=== PATIENT | female | born 1960 | race Caucasian/White ===

== ENCOUNTER 2017-02-19 15:51 | Inpatient (IN) | payer OTHER ==
[~2017-02-19] VITALS: Ht 165.1 cm; Wt 102.9 kg
[2017-02-19] MEDS ORDERED: SODIUM CHLORIDE FLUSH 10ML SYR IVF ONE (16:00)
[2017-02-19 16:48] LABS: ASPARTATE AMINO TRANSFERASE 114 U/L (15-37); BLOOD UREA NITROGEN 11 mg/dL (7-18)
[2017-02-19 16:55] LABS: HEMATOCRIT 39.3 % (34.6-47.8); HEMOGLOBIN 13.4 g/dL (11.7-16.4); WHITE BLOOD COUNT 16.5 x10^3/uL (3.4-10)
[2017-02-19 16:57] LABS: DIFF TOTAL CELLS COUNTED 100 CELL DIFF
[2017-02-19 17:28] LABS: ANISOCYTOSIS 1+; POLYCHROMASIA 1+; TARGET CELLS 1+; VERIFY COUNTS? YES
[2017-02-19] MEDS ORDERED: POTASSIUM CHLORIDE 20 MEQ TAB.ER.PRT ONE (17:28)
[2017-02-19] MEDS ORDERED: POTASSIUM CHLORIDE 20 MEQ PACKET PO ONE (17:30)
[2017-02-19] MEDS ORDERED: POTASSIUM CHLORIDE 40 MEQ in SODIUM CHLORIDE 0.9% 500 ML IV ONE (17:30)
[2017-02-19] MEDS ORDERED: OMNIPAQUE 350 MG/ML, 100ML BOTTLE ONE (18:21)
[2017-02-19] MEDS: POLYETHYLENE GLYCOL 17 GM PACKET PO SCH (21:00)
[2017-02-19 21:55] LABS: CARCINOEMBRYONIC ANTIGEN 80.32 ng/mL (0.0-3.00)
[2017-02-19] MEDS ORDERED: PHYTONADIONE 5 MG TABLET PO ONE (22:00)
[2017-02-19] MEDS ORDERED: morphine SULFATE 10 MG/ML, 1ML IVPush PRN (22:00)
[2017-02-19] MEDS ORDERED: LABETALOL 5MG/ML, 20ML IVPush PRN (22:00)
[2017-02-19] MEDS ORDERED: TEMAZEPAM 15 MG CAPSULE PO PRN (22:00)
[2017-02-19] MEDS ORDERED: ONDANSETRON ODT 4 MG PO PRN (22:00)
[2017-02-19] MEDS ORDERED: ONDANSETRON 2MG/ML, 2ML IVPush PRN (22:00)
[2017-02-19] MEDS ORDERED: FAMOTIDINE 20 MG/2 ML ONE (22:07)
[2017-02-19] MEDS: CEFOTETAN PMX 2GM/50ML 50 ML IV SCH (22:40)
[2017-02-19] MEDS: FAMOTIDINE 20 MG/2 ML IVPush SCH (22:41)
[2017-02-19] MEDS: POTASSIUM CHLORIDE 40 MEQ in D5%-0.9% NACL 1,000 ML IV SCH (23:05)
[2017-02-20 00:28] VITALS: BP 119/78
[2017-02-20 05:51] LABS: BLOOD UREA NITROGEN 7 mg/dL (7-18)
[2017-02-20 05:55] LABS: ASPARTATE AMINO TRANSFERASE 92 U/L (15-37)
[2017-02-20 06:06] LABS: HEMATOCRIT 32.4 % (34.6-47.8); HEMOGLOBIN 11.2 g/dL (11.7-16.4); WHITE BLOOD COUNT 12.6 x10^3/uL (3.4-10)
[2017-02-20 06:07] LABS: DIFF TOTAL CELLS COUNTED 100 CELL DIFF
[2017-02-20 06:08] LABS: VERIFY COUNTS? YES
[2017-02-20 06:10] LABS: ANISOCYTOSIS 1+; POLYCHROMASIA 1+
[2017-02-20] MEDS ORDERED: PHARMACY INSTRUCTION MC PRN (06:30)
[2017-02-20] MEDS ORDERED: POTASSIUM CHLORIDE 60 MEQ in SODIUM CHLORIDE 0.9% 1,000 ML IV ONE (06:30)
[2017-02-20] MEDS: POTASSIUM CHLORIDE 40 MEQ in D5%-0.9% NACL 1,000 ML IV SCH ×2 (07:54→19:57)
[2017-02-20] MEDS: POLYETHYLENE GLYCOL 17 GM PACKET PO SCH (07:55)
[2017-02-20] MEDS: FAMOTIDINE 20 MG/2 ML IVPush SCH ×2 (07:59→19:58)
[2017-02-20 08:18] VITALS: BP 112/69
[2017-02-20] MEDS: CEFOTETAN PMX 2GM/50ML 50 ML IV SCH (10:21)
[2017-02-20] MEDS ORDERED: FENTANYL PF 100 MCG/2ML ONE (13:43)
[2017-02-20] MEDS ORDERED: morphine SULFATE 10 MG/ML, 1ML IV PRN (14:00)
[2017-02-20] MEDS ORDERED: FENTANYL PF 100 MCG/2ML IV PRN (14:00)
[2017-02-20] MEDS ORDERED: HYDROmorphone 1 MG/ML, 1ML IV PRN (14:00)
[2017-02-20] MEDS ORDERED: OXYcodone 5 MG/5 ML ORAL.SOL UDC PO PRN (14:00)
[2017-02-20] MEDS ORDERED: HYDROcodone/APAP 7.5-325MG/15ML UDC PO PRN (14:00)
[2017-02-20] MEDS ORDERED: SUCCINYLCHOLINE 20 MG/ML, 10ML ONE (14:02)
[2017-02-20] MEDS ORDERED: PROPOFOL 10 MG/ML, 20ML ONE (14:02)
[2017-02-20] MEDS ORDERED: OMNIPAQUE 350 MG/ML, 50 ML BOTTLE ONE (14:57)
[2017-02-20 16:33] VITALS: BP 120/58
[2017-02-20] MEDS ORDERED: POTASSIUM CHLORIDE 20 MEQ TAB.ER.PRT PO ONE (18:30)
[2017-02-20 19:49] VITALS: BP 106/66
[2017-02-20] MEDS: PIPERACILLIN/TAZO/PMX 3.375GM 50 ML IV SCH (19:57)
[2017-02-20] MEDS ORDERED: POTASSIUM CHLORIDE 40 MEQ in SODIUM CHLORIDE 0.9% 500 ML IV ONE (22:00)
[2017-02-21] MEDS: PIPERACILLIN/TAZO/PMX 3.375GM 50 ML IV SCH ×4 (01:00→20:10)
[2017-02-21 02:07] VITALS: BP 113/72
[2017-02-21] MEDS: POLYETHYLENE GLYCOL 17 GM PACKET PO SCH (02:39)
[2017-02-21 07:42] LABS: ASPARTATE AMINO TRANSFERASE 94 U/L (15-37); BLOOD UREA NITROGEN 7 mg/dL (7-18)
[2017-02-21 07:45] LABS: DIFF TOTAL CELLS COUNTED 100 CELL DIFF; HEMATOCRIT 33.4 % (34.6-47.8); HEMOGLOBIN 11.3 g/dL (11.7-16.4); WHITE BLOOD COUNT 11.4 x10^3/uL (3.4-10)
[2017-02-21 08:38] LABS: ANISOCYTOSIS 1+
[2017-02-21 08:40] LABS: VERIFY COUNTS? YES
[2017-02-21] MEDS: POTASSIUM CHLORIDE 40 MEQ in D5%-0.9% NACL 1,000 ML IV SCH ×2 (09:02→20:53)
[2017-02-21] MEDS: FAMOTIDINE 20 MG/2 ML IVPush SCH ×2 (09:11→20:10)
[2017-02-21] MEDS: POTASSIUM CHLORIDE 20 MEQ TAB.ER.PRT PO SCH ×3 (09:11→17:02)
[2017-02-21 09:13] VITALS: BP 128/78
[2017-02-21] MEDS: NEUTRA PHOS K 250 MG TABLET PO SCH ×2 (12:37→20:10)
[2017-02-21 15:03] VITALS: BP 120/76
[2017-02-21] MEDS: HEMORRHOIDAL OINT, 28 GM (PREP H) RC PRN ×2 (17:03→22:46)
[2017-02-21 19:22] VITALS: BP 143/84
[2017-02-22 01:04] VITALS: BP 158/85
[2017-02-22] MEDS: PIPERACILLIN/TAZO/PMX 3.375GM 50 ML IV SCH ×4 (02:20→20:41)
[2017-02-22 06:03] LABS: HEMATOCRIT 32.1 % (34.6-47.8); HEMOGLOBIN 11.1 g/dL (11.7-16.4); WHITE BLOOD COUNT 13.7 x10^3/uL (3.4-10)
[2017-02-22 06:04] LABS: DIFF TOTAL CELLS COUNTED 100 CELL DIFF
[2017-02-22 06:10] LABS: ASPARTATE AMINO TRANSFERASE 82 U/L (15-37); BLOOD UREA NITROGEN 6 mg/dL (7-18)
[2017-02-22] MEDS: POTASSIUM CHLORIDE 40 MEQ in D5%-0.9% NACL 1,000 ML IV SCH (07:12)
[2017-02-22 07:15] LABS: ANISOCYTOSIS 1+; POLYCHROMASIA 1+; VERIFY COUNTS? YES
[2017-02-22 07:40] VITALS: BP 123/71
[2017-02-22 08:47] VITALS: BP 129/79
[2017-02-22] MEDS: POLYETHYLENE GLYCOL 17 GM PACKET PO SCH (08:49)
[2017-02-22] MEDS: FAMOTIDINE 20 MG/2 ML IVPush SCH ×2 (08:52→20:41)
[2017-02-22] MEDS: NEUTRA PHOS K 250 MG TABLET PO SCH (08:53)
[2017-02-22] MEDS: POTASSIUM CHLORIDE 20 MEQ TAB.ER.PRT PO SCH (08:53)
[2017-02-22] MEDS ORDERED: MIDAZOLAM 1 MG/ML, 5ML ONE (09:58)
[2017-02-22] MEDS ORDERED: NALOXONE 1 MG/ML, 2ML ONE (09:59)
[2017-02-22] MEDS ORDERED: FENTANYL PF 100 MCG/2ML ONE (09:59)
[2017-02-22] MEDS ORDERED: FLUMAZENIL 0.1 MG/1 ML, 5ML ONE (09:59)
[2017-02-22 13:30] VITALS: BP 121/77
[2017-02-22] MEDS ORDERED: POTASSIUM CHLORIDE 20 MEQ TAB.ER.PRT PO ONE (15:00)
[2017-02-22 20:39] VITALS: BP 112/71
[2017-02-23 02:46] VITALS: BP 114/72
[2017-02-23] MEDS: PIPERACILLIN/TAZO/PMX 3.375GM 50 ML IV SCH ×4 (02:53→19:46)
[2017-02-23 05:40] LABS: HEMATOCRIT 36.5 % (34.6-47.8); HEMOGLOBIN 12.4 g/dL (11.7-16.4); WHITE BLOOD COUNT 12.8 x10^3/uL (3.4-10)
[2017-02-23 05:41] LABS: ASPARTATE AMINO TRANSFERASE 100 U/L (15-37); BLOOD UREA NITROGEN 9 mg/dL (7-18)
[2017-02-23 06:48] LABS: DIFF TOTAL CELLS COUNTED 100 CELL DIFF
[2017-02-23 06:50] LABS: ANISOCYTOSIS 1+; POLYCHROMASIA 1+; VERIFY COUNTS? YES
[2017-02-23 06:51] LABS: TARGET CELLS 1+
[2017-02-23] MEDS: FAMOTIDINE 20 MG/2 ML IVPush SCH ×2 (07:53→19:46)
[2017-02-23] MEDS: POLYETHYLENE GLYCOL 17 GM PACKET PO SCH (07:53)
[2017-02-23 08:10] VITALS: BP 121/79
[2017-02-23] MEDS: FUROSEMIDE 20 MG/2 ML IV SCH (10:14)
[2017-02-23] MEDS: POTASSIUM CHLORIDE 20 MEQ TAB.ER.PRT PO SCH ×2 (10:14→16:18)
[2017-02-23 13:55] VITALS: BP 117/67
[2017-02-23 18:57] VITALS: BP 128/75
[2017-02-24] MEDS: PIPERACILLIN/TAZO/PMX 3.375GM 50 ML IV SCH ×2 (02:08→09:32)
[2017-02-24 02:12] VITALS: BP 133/80
[2017-02-24] MEDS: POLYETHYLENE GLYCOL 17 GM PACKET PO SCH (03:24)
[2017-02-24 05:05] LABS: HEMATOCRIT 34.5 % (34.6-47.8); HEMOGLOBIN 11.5 g/dL (11.7-16.4); WHITE BLOOD COUNT 16.7 x10^3/uL (3.4-10)
[2017-02-24 05:19] LABS: BLOOD UREA NITROGEN 10 mg/dL (7-18)
[2017-02-24 05:25] LABS: ASPARTATE AMINO TRANSFERASE 88 U/L (15-37)
[2017-02-24 05:36] LABS: DIFF TOTAL CELLS COUNTED 100 CELL DIFF
[2017-02-24 05:38] LABS: ANISOCYTOSIS 1+; VERIFY COUNTS? YES
[2017-02-24 05:39] LABS: POLYCHROMASIA 1+; TARGET CELLS 1+
[2017-02-24] MEDS ORDERED: POTASSIUM CHLORIDE 10% 40 MEQ/30 ML UDC PO ONE (07:30)
[2017-02-24 08:20] VITALS: BP 122/74
[2017-02-24] MEDS: FUROSEMIDE 20 MG/2 ML IV SCH (09:32)
[2017-02-24] MEDS: POTASSIUM CHLORIDE 20 MEQ TAB.ER.PRT PO SCH (09:32)
[2017-02-24] MEDS: FAMOTIDINE 20 MG/2 ML IVPush SCH (09:33)
[2017-02-24] MEDS ORDERED: POTA20PA25 PO (11:06)
[2017-02-24] MEDS ORDERED: AMOX1TAB64 PO (11:06)
[2017-02-24] MEDS ORDERED: METR500T PO (11:06)
== END 2017-02-24 14:34 | disposition home or self-care (01) | DRG 444 ==
LOC: ED 20:28 → EDIP 20:45 → 5SO 02-20 00:16 → 3NW 02-23 11:43
PROVIDERS: ADMIT Internal Medicine; ATTEND Internal Medicine
PROC: 0F7C8DZ Dilation of Ampulla of Vater with Intraluminal Device, Via Natural or Artificial Opening Endoscopic (ICD-10-PCS; 2017-02-20)
PROC: 0F798DZ Dilation of Common Bile Duct with Intraluminal Device, Via Natural or Artificial Opening Endoscopic (ICD-10-PCS; 2017-02-20)
PROC: 0FB Hepatobiliary System and Pancreas, Excision (ICD-10-PCS; principal; 2017-02-22)
DX: K80.33 Calculus of bile duct with acute cholangitis with obstruction (principal); E43 Unspecified severe protein-calorie malnutrition; D68.9 Coagulation defect, unspecified; E87.1 Hypo-osmolality and hyponatremia; E83.42 Hypomagnesemia; E83.39 Other disorders of phosphorus metabolism; D25.9 Leiomyoma of uterus, unspecified; E66.01 Morbid (severe) obesity due to excess calories; E87.6 Hypokalemia; K57.30 Diverticulosis of large intestine without perforation or abscess without bleeding; K58.9 Irritable bowel syndrome, unspecified; Z98.1 Arthrodesis status; Z68.37 Body mass index [BMI] 37.0-37.9, adult
CPT/HCPCS: 36415; 49180; 74177; 74328; 76700; 77012; 80053; 81003; 82105; 82247; 82248; 82378; 83036; 83690; 83735; 84100; 84132; 85025; 85610; 85730; 86301; 87040; 88104; 88112; 88172; 88305; 93005; 96374; 96375; 99156; 99157; J2250; J2543; J2704; J3010; J3480; J7042; Q9967; C1769; C1894; C2625; J0330; J1940; J2310; J7030; J7040; S0028; S0074

== ENCOUNTER 2017-04-12 12:06 | Inpatient (IN) | payer MEDICAID ==
[~2017-04-12] VITALS: Ht 162.6 cm; Wt 90.0 kg
[~2017-04-12 12:06] MED LIST: AMOX1TAB64 PO; METR500T PO; POTA20PA25 PO
[2017-04-12 12:50] LABS: HEMATOCRIT 31.9 % (34.6-47.8); HEMOGLOBIN 10.7 g/dL (11.7-16.4); WHITE BLOOD COUNT 15.1 x10^3/uL (3.4-10)
[2017-04-12 13:00] LABS: BLOOD UREA NITROGEN 12 mg/dL (7-18)
[2017-04-12] MEDS ORDERED: HEPARIN 5,000 UNITS/ML, 1ML IV PRN (13:00)
[2017-04-12] MEDS ORDERED: HEPARIN 5,000 UNITS/ML, 1ML IV ONE (13:00)
[2017-04-12] MEDS ORDERED: HEPARIN 25,000 UNITS/500ML PMX 500 ML IV PRN (13:00)
[2017-04-12] MEDS ORDERED: HEPARIN 5,000 UNITS/ML, 1ML ONE (13:14)
[2017-04-12] MEDS ORDERED: HEPARIN 25,000 UNITS/500ML PMX 500 ML ONE (13:14)
[2017-04-12] MEDS ORDERED: POTASSIUM CHLORIDE 20 MEQ TAB.ER.PRT PO ONE (13:30)
[2017-04-12] MEDS ORDERED: SODIUM CHLORIDE FLUSH 10ML SYR IVF PRN (14:30)
[2017-04-12] MEDS ORDERED: ENOXAPARIN 100 MG/ML SQ SCH (14:30)
[2017-04-12] MEDS ORDERED: ENOXAPARIN 40 MG/0.4 ML ONE (14:35)
[2017-04-12] MEDS ORDERED: POTASSIUM CHLORIDE 20 MEQ TAB.ER.PRT ONE (14:35)
[2017-04-12] MEDS ORDERED: ONDANSETRON ODT 4 MG PO PRN (15:00)
[2017-04-12 16:13] VITALS: BP 137/80
[2017-04-12] MEDS ORDERED: NS + 20MEQ KCL 1,000 ML IV SCH (16:30)
[2017-04-12 17:20] VITALS: BP 133/82
[2017-04-12 18:38] VITALS: BP 137/83
[2017-04-12] MEDS: ACETAMINOPHEN 325 MG TABLET PO PRN (18:41)
[2017-04-12] MEDS ORDERED: APIXABAN 5 MG TABLET PO SCH (21:00)
[2017-04-13 01:02] VITALS: BP 143/83
[2017-04-13] MEDS: ENOXAPARIN 100 MG/ML SQ SCH ×2 (03:20→15:08)
[2017-04-13] MEDS: ACETAMINOPHEN 325 MG TABLET PO PRN ×2 (04:18→11:42)
[2017-04-13 05:18] LABS: HEMATOCRIT 33.1 % (34.6-47.8); HEMOGLOBIN 11.1 g/dL (11.7-16.4); WHITE BLOOD COUNT 13.4 x10^3/uL (3.4-10)
[2017-04-13 05:26] LABS: BLOOD UREA NITROGEN 11 mg/dL (7-18)
[2017-04-13 07:15] VITALS: BP 145/83
[2017-04-13] MEDS ORDERED: CALCIUM CITRATE 950 MG TABLET PO SCH (09:00)
[2017-04-13] MEDS ORDERED: POTASSIUM CHLORIDE 20 MEQ TAB.ER.PRT PO ONE (10:30)
[2017-04-13] MEDS ORDERED: RIVA15TA PO (11:48)
[2017-04-13] MEDS ORDERED: POTA20PA25 PO (11:48)
[2017-04-13] MEDS ORDERED: SODIUM CHLORIDE 0.9% 500 ML IV ONE (12:00)
[2017-04-13 13:55] VITALS: BP 142/78
== END 2017-04-13 17:33 | disposition home or self-care (01) | DRG 175 ==
LOC: ED 12:51 → EDIP 14:13 → 3NE 15:15 → 4WST 16:32
PROVIDERS: ADMIT Internal Medicine; ATTEND Internal Medicine
DX: I26.99 Other pulmonary embolism without acute cor pulmonale (principal); E43 Unspecified severe protein-calorie malnutrition; J81.1 Chronic pulmonary edema; C23 Malignant neoplasm of gallbladder; E46 Unspecified protein-calorie malnutrition; K80.32 Calculus of bile duct with acute cholangitis without obstruction; R73.9 Hyperglycemia, unspecified; E87.6 Hypokalemia; E83.51 Hypocalcemia; Z68.34 Body mass index [BMI] 34.0-34.9, adult; Z79.01 Long term (current) use of anticoagulants; Z98.1 Arthrodesis status; Z88.2 Allergy status to sulfonamides
CPT/HCPCS: 36415; 80048; 82040; 83735; 84100; 85025; 85610; 85730; 93005; 99285; J1650; J3480

== ENCOUNTER 2017-04-24 15:53 | Inpatient (IN) | payer MEDICAID ==
[~2017-04-24] VITALS: Ht 162.6 cm; Wt 101.7 kg
[~2017-04-24 15:53] MED LIST changes: +RIVA15TA PO
[2017-04-24 16:18] LABS: MEAN CORPUSCULAR HEMOGLOBIN 30.2 pg (27.0-34.8); MEAN CORPUSCULAR HGB CONC 32.7 g/dL (32.4-35.8); MEAN CORPUSCULAR VOLUME 92.4 fL (80-100); MEAN PLATELET VOLUME 7.1 fL (7.4-10.4); PLATELET COUNT 465 x10^3/uL (130-400); RED BLOOD COUNT 2.71 x10^6/uL (3.82-5.3); RED CELL DISTRIBUTION WIDTH 14.7 % (9.6-15.2)
[2017-04-24 16:25] LABS: INTERNATIONAL NORMALIZED RATIO 1.34 (0.93-1.1); PROTHROMBIN TIME 13.9 Seconds (9.6-11.5)
[2017-04-24 16:28] LABS: ALBUMIN 2.6 g/dL (3.4-5.0); ANION GAP 10 mmol/L (5-15); CALCIUM 8.1 mg/dL (8.5-10.1); CHLORIDE 102 mmol/L (98-107); CREATININE 0.76 mg/dL (0.55-1.02)
[2017-04-24] MEDS ORDERED: SODIUM CHLORIDE FLUSH 10ML SYR IVF ONE (16:30)
[2017-04-24 16:32] LABS: TROPONIN I < 0.015 ng/mL (0.000-0.045)
[2017-04-24] MEDS ORDERED: ACET325T14 PO (16:33)
[2017-04-24 16:48] LABS: MD YES
[2017-04-24 16:51] LABS: EOS#(MANUAL) 0.42 x10^3/uL (0.0-0.4); EOS% (MANUAL) 2 % (1-7); LYMPH#(MANUAL) 5.72 x10^3/uL (1-3.4); LYMPHS% (MANUAL) 27 % (22-44); MONOS#(MANUAL) 0.21 x10^3/uL (0.3-2.7); MONOS% (MANUAL) 1 % (2-9); MYELOCYTES# (MANUAL) 0.21 x10^3/uL (0-0); MYELOCYTES% (MANUAL) 1 % (0-0); SEG#(MANUAL) 14.63 x10^3/uL (1.8-6.8); SEGS% (MANUAL) 69 % (42-75)
[2017-04-24 16:52] LABS: ANISOCYTOSIS 1+; HYPOCHROMIA 1+; POLYCHROMASIA 1+
[2017-04-24 16:53] LABS: <PLATELET ESTIMATE> INCREASED; <PLT MORPHOLOGY> NORMAL PLT MORPH
[2017-04-24] MEDS ORDERED: OMNIPAQUE 350 MG/ML, 100ML BOTTLE ONE (17:21)
[2017-04-24] MEDS ORDERED: SODIUM CHLORIDE 0.9% 1,000ML IVBOLUS ONE (18:00)
[2017-04-24] MEDS ORDERED: PANTOPRAZOLE 80 MG in SODIUM CHLORIDE 0.9% 100 ML IV SCH (18:05)
[2017-04-24] MEDS ORDERED: PANTOPRAZOLE 80 MG in SODIUM CHLORIDE 0.9% 50 ML IVPB ONE (18:05)
[2017-04-24] MEDS ORDERED: CEFTRIAXONE PMX 1GM/50ML 50 ML ONE (18:28)
[2017-04-24] MEDS ORDERED: CEFTRIAXONE PMX 1GM/50ML 50 ML IV ONE (18:30)
[2017-04-24 20:30] VITALS: BP 155/79
[2017-04-24] MEDS ORDERED: ONDANSETRON 2MG/ML, 2ML IVPush PRN (20:30)
[2017-04-24] MEDS ORDERED: ACETAMINOPHEN 325 MG TABLET PO PRN (20:30)
[2017-04-24] MEDS ORDERED: hydrALAzine 20 MG/ML, 1ML IVPush PRN (20:30)
[2017-04-24 21:32] VITALS: BP 155/79
[2017-04-24] MEDS: SODIUM CHLORIDE 0.9% 1,000 ML IV SCH (22:15)
[2017-04-24] MEDS: morphine SULFATE 10 MG/ML, 1ML IVPush PRN (22:15)
[2017-04-24 22:48] LABS: MICROSCOPIC AUTO
[2017-04-24 22:50] LABS: CULTURE INDICATED? YES
[2017-04-25] VITALS (9 sets, daily range): BP systolic 108–143; BP diastolic 70–83
[2017-04-25] MEDS: morphine SULFATE 10 MG/ML, 1ML IVPush PRN ×4 (03:20→22:18)
[2017-04-25 04:35] LABS: BASOPHILS # (AUTO) 0.07 x10^3/uL (0-0.1); BASOPHILS % (AUTO) 0 % (0-1); EOSINOPHILS # (AUTO) 0.09 x10^3/uL (0-0.4); EOSINOPHILS % (AUTO) 1 % (1-7); LYMPHOCYTES # (AUTO) 2.35 x10^3/uL (1-3.4); LYMPHOCYTES % (AUTO) 15 % (22-44); MD NO; MEAN CORPUSCULAR HEMOGLOBIN 30.1 pg (27.0-34.8); MEAN CORPUSCULAR HGB CONC 32.5 g/dL (32.4-35.8); MEAN CORPUSCULAR VOLUME 92.5 fL (80-100); MEAN PLATELET VOLUME 7.1 fL (7.4-10.4); MONOCYTES # (AUTO) 0.93 x10^3/uL (0.2-0.8); MONOCYTES % (AUTO) 6 % (2-9); NEUTROPHILS % (AUTO) 78 % (42-75); PLATELET COUNT 329 x10^3/uL (130-400); RED BLOOD COUNT 2.32 x10^6/uL (3.82-5.3); RED CELL DISTRIBUTION WIDTH 14.6 % (9.6-15.2)
[2017-04-25 04:47] LABS: CHLORIDE 103 mmol/L (98-107)
[2017-04-25 04:53] LABS: ALANINE AMINOTRANSFERASE 11 U/L (12-78); ALBUMIN 2.2 g/dL (3.4-5.0); ALKALINE PHOSPHATASE 218 U/L (45-117); ANION GAP 9 mmol/L (5-15); BILIRUBIN,TOTAL 0.5 mg/dL (0.2-1.0); CALCIUM 7.6 mg/dL (8.5-10.1); TOTAL PROTEIN 5.9 g/dL (6.4-8.2)
[2017-04-25] MEDS ORDERED: POTASSIUM CHLORIDE 40 MEQ in SODIUM CHLORIDE 0.9% 500 ML IV ONE (08:00)
[2017-04-25] MEDS: PANTOPRAZOLE 40 MG IV IVPush SCH (08:43)
[2017-04-25] MEDS: SODIUM CHLORIDE 0.9% 1,000 ML IV SCH (12:00)
[2017-04-25] MEDS: MOVIPREP POWDER 1 PREP KIT PO SCH ×2 (16:00→21:18)
[2017-04-26] MEDS: SODIUM CHLORIDE 0.9% 1,000 ML IV SCH (01:30)
[2017-04-26 02:15] VITALS: BP 140/83
[2017-04-26 04:52] LABS: ALBUMIN 2.4 g/dL (3.4-5.0); ANION GAP 10 mmol/L (5-15); CHLORIDE 103 mmol/L (98-107)
[2017-04-26 04:56] LABS: ALANINE AMINOTRANSFERASE 14 U/L (12-78); ALKALINE PHOSPHATASE 314 U/L (45-117); BILIRUBIN,TOTAL 0.9 mg/dL (0.2-1.0); CREATININE 0.61 mg/dL (0.55-1.02); TOTAL PROTEIN 6.6 g/dL (6.4-8.2)
[2017-04-26 05:01] LABS: MEAN CORPUSCULAR HEMOGLOBIN 30.1 pg (27.0-34.8); MEAN CORPUSCULAR HGB CONC 33.1 g/dL (32.4-35.8); MEAN CORPUSCULAR VOLUME 90.8 fL (80-100); MEAN PLATELET VOLUME 7.2 fL (7.4-10.4); PLATELET COUNT 331 x10^3/uL (130-400); RED BLOOD COUNT 3.36 x10^6/uL (3.82-5.3); RED CELL DISTRIBUTION WIDTH 15.6 % (9.6-15.2)
[2017-04-26] MEDS: morphine SULFATE 10 MG/ML, 1ML IVPush PRN ×3 (05:32→22:48)
[2017-04-26 05:42] LABS: MD YES
[2017-04-26 05:43] LABS: LYMPH#(MANUAL) 4.07 x10^3/uL (1-3.4); LYMPHS% (MANUAL) 19 % (22-44); MONOS#(MANUAL) 2.14 x10^3/uL (0.3-2.7); MONOS% (MANUAL) 10 % (2-9); REACTIVE LYMPHS # (MANUAL) 0.43 x10^3/uL (0-0); REACTIVE LYMPHS % (MANUAL) 2 % (0-0); SEG#(MANUAL) 14.77 x10^3/uL (1.8-6.8); SEGS% (MANUAL) 69 % (42-75)
[2017-04-26 05:44] LABS: <PLATELET ESTIMATE> ADEQUATE; ANISOCYTOSIS 1+; POLYCHROMASIA 1+
[2017-04-26 05:45] LABS: <PLT MORPHOLOGY> NORMAL PLT MORPH
[2017-04-26] MEDS ORDERED: GOLYTELY 4,000ML ORAL.SOL PO ONE (06:30)
[2017-04-26 06:59] VITALS: BP 129/83
[2017-04-26] MEDS ORDERED: OMNIPAQUE 350 MG/ML, 100ML BOTTLE ONE (07:48)
[2017-04-26] MEDS ORDERED: FENTANYL PF 100 MCG/2ML ONE ×4 (08:40→17:44)
[2017-04-26] MEDS ORDERED: MIDAZOLAM 1 MG/ML, 5ML ONE (08:41)
[2017-04-26] MEDS: MOVIPREP POWDER 1 PREP KIT PO SCH ×2 (09:00→21:00)
[2017-04-26] MEDS: D5%-0.45NACL+KCL 30MEQ 1,000 ML IV SCH ×2 (10:30→22:49)
[2017-04-26] MEDS: PANTOPRAZOLE 40 MG IV IVPush SCH (10:31)
[2017-04-26] MEDS ORDERED: LIDOCAINE 1%, 20ML ONE (10:38)
[2017-04-26 14:29] VITALS: BP 133/81
[2017-04-26] MEDS ORDERED: DEXAMETHASONE 4 MG/ML, 1ML ONE (16:37)
[2017-04-26] MEDS ORDERED: NEOSTIGMINE 1 MG/ML, 10ML ONE (16:37)
[2017-04-26] MEDS ORDERED: CEFOTETAN 2 GM ONE (16:37)
[2017-04-26] MEDS ORDERED: SUCCINYLCHOLINE 20 MG/ML, 10ML ONE (16:37)
[2017-04-26] MEDS ORDERED: ROCURONIUM 10 MG/ML,10ML ONE (16:37)
[2017-04-26] MEDS ORDERED: GLYCOPYRROLATE 0.2MG/1ML, 5ML ONE (16:37)
[2017-04-26] MEDS ORDERED: PROPOFOL 10 MG/ML, 20ML ONE (16:37)
[2017-04-26] MEDS ORDERED: BUPIVACAINE/PF 0.5% INFIL ONE (17:01)
[2017-04-26] MEDS ORDERED: ONDANSETRON 2MG/ML, 2ML IVPush PRN (17:30)
[2017-04-26] MEDS ORDERED: ACETAMINOPHEN 650 MG/20.3 ML UDC ONE (17:43)
[2017-04-26] MEDS ORDERED: OXYcodone 5 MG/5 ML ORAL.SOL UDC ONE (17:44)
[2017-04-26] MEDS: FENTANYL PF 100 MCG/2ML IV PRN ×2 (17:53→18:02)
[2017-04-26] MEDS: OXYcodone 5 MG/5 ML ORAL.SOL UDC PO PRN (17:55)
[2017-04-26] MEDS ORDERED: hydrALAzine 20 MG/ML, 1ML ONE (17:57)
[2017-04-26] MEDS ORDERED: HYDROmorphone 1 MG/ML, 1ML ONE (18:04)
[2017-04-26] MEDS: HYDROmorphone 1 MG/ML, 1ML IV PRN ×2 (18:07→19:11)
[2017-04-26 18:20] VITALS: BP 129/83
[2017-04-26] MEDS: PIPERACILLIN/TAZO/PMX 3.375GM 50 ML IV SCH (22:49)
[2017-04-27 01:38] VITALS: BP 117/71
[2017-04-27 05:00] LABS: ANION GAP 7 mmol/L (5-15); CALCIUM 7.8 mg/dL (8.5-10.1); CHLORIDE 104 mmol/L (98-107); CREATININE 0.78 mg/dL (0.55-1.02)
[2017-04-27] MEDS: morphine SULFATE 10 MG/ML, 1ML IVPush PRN ×5 (05:00→21:45)
[2017-04-27] MEDS: PIPERACILLIN/TAZO/PMX 3.375GM 50 ML IV SCH ×4 (05:00→23:25)
[2017-04-27 05:08] LABS: BASOPHILS # (AUTO) 0.02 x10^3/uL (0-0.1); BASOPHILS % (AUTO) 0 % (0-1); EOSINOPHILS % (AUTO) 0 % (1-7); LYMPHOCYTES # (AUTO) 1.57 x10^3/uL (1-3.4); LYMPHOCYTES % (AUTO) 9 % (22-44); MD NO; MEAN CORPUSCULAR HEMOGLOBIN 30.1 pg (27.0-34.8); MEAN CORPUSCULAR HGB CONC 32.8 g/dL (32.4-35.8); MEAN CORPUSCULAR VOLUME 91.7 fL (80-100); MEAN PLATELET VOLUME 6.9 fL (7.4-10.4); MONOCYTES # (AUTO) 1.12 x10^3/uL (0.2-0.8); MONOCYTES % (AUTO) 7 % (2-9); NEUTROPHILS # (AUTO) 14.02 x10^3/uL (1.8-6.8); NEUTROPHILS % (AUTO) 84 % (42-75); PLATELET COUNT 255 x10^3/uL (130-400); RED BLOOD COUNT 2.97 x10^6/uL (3.82-5.3); RED CELL DISTRIBUTION WIDTH 15.2 % (9.6-15.2)
[2017-04-27 06:47] VITALS: BP 122/80
[2017-04-27] MEDS: PANTOPRAZOLE 40 MG IV IVPush SCH (08:02)
[2017-04-27] MEDS: D5%-0.45NACL+KCL 30MEQ 1,000 ML IV SCH ×2 (10:33→21:44)
[2017-04-27 13:10] VITALS: BP 130/77
[2017-04-27 19:39] VITALS: BP 137/82
[2017-04-28 01:49] VITALS: BP 134/81
[2017-04-28] MEDS: morphine SULFATE 10 MG/ML, 1ML IVPush PRN ×6 (01:51→21:19)
[2017-04-28] MEDS: PIPERACILLIN/TAZO/PMX 3.375GM 50 ML IV SCH ×4 (05:04→23:12)
[2017-04-28 07:09] VITALS: BP 134/82
[2017-04-28] MEDS: D5%-0.45NACL+KCL 30MEQ 1,000 ML IV SCH ×2 (08:20→18:30)
[2017-04-28] MEDS: PANTOPRAZOLE 40 MG IV IVPush SCH (08:20)
[2017-04-28 09:59] LABS: BASOPHILS # (AUTO) 0.07 x10^3/uL (0-0.1); BASOPHILS % (AUTO) 1 % (0-1); EOSINOPHILS # (AUTO) 0.14 x10^3/uL (0-0.4); EOSINOPHILS % (AUTO) 1 % (1-7); LYMPHOCYTES # (AUTO) 2.17 x10^3/uL (1-3.4); LYMPHOCYTES % (AUTO) 16 % (22-44); MD NO; MEAN CORPUSCULAR HEMOGLOBIN 30.3 pg (27.0-34.8); MEAN CORPUSCULAR HGB CONC 33.4 g/dL (32.4-35.8); MEAN CORPUSCULAR VOLUME 90.8 fL (80-100); MEAN PLATELET VOLUME 6.8 fL (7.4-10.4); MONOCYTES # (AUTO) 1.26 x10^3/uL (0.2-0.8); MONOCYTES % (AUTO) 9 % (2-9); NEUTROPHILS # (AUTO) 9.82 x10^3/uL (1.8-6.8); NEUTROPHILS % (AUTO) 73 % (42-75); PLATELET COUNT 226 x10^3/uL (130-400); RED BLOOD COUNT 2.91 x10^6/uL (3.82-5.3); RED CELL DISTRIBUTION WIDTH 15.3 % (9.6-15.2)
[2017-04-28] MEDS: OXYcodone 5 MG/5 ML ORAL.SOL UDC PO PRN (13:26)
[2017-04-28 14:01] VITALS: BP 111/72
[2017-04-28] MEDS: OXYcodone IR 5MG TABLET PO PRN ×2 (18:30→23:12)
[2017-04-28 19:44] VITALS: BP 122/78
[2017-04-29] MEDS: morphine SULFATE 10 MG/ML, 1ML IVPush PRN ×5 (01:52→16:16)
[2017-04-29 03:11] VITALS: BP 136/85
[2017-04-29] MEDS: OXYcodone IR 5MG TABLET PO PRN ×4 (03:17→16:16)
[2017-04-29 04:47] LABS: BASOPHILS # (AUTO) 0.06 x10^3/uL (0-0.1); BASOPHILS % (AUTO) 0 % (0-1); EOSINOPHILS # (AUTO) 0.27 x10^3/uL (0-0.4); EOSINOPHILS % (AUTO) 2 % (1-7); LYMPHOCYTES # (AUTO) 2.48 x10^3/uL (1-3.4); LYMPHOCYTES % (AUTO) 17 % (22-44); MD NO; MEAN CORPUSCULAR HEMOGLOBIN 29.4 pg (27.0-34.8); MEAN CORPUSCULAR HGB CONC 32.4 g/dL (32.4-35.8); MEAN CORPUSCULAR VOLUME 90.8 fL (80-100); MEAN PLATELET VOLUME 6.8 fL (7.4-10.4); MONOCYTES # (AUTO) 1.42 x10^3/uL (0.2-0.8); MONOCYTES % (AUTO) 10 % (2-9); NEUTROPHILS # (AUTO) 10.19 x10^3/uL (1.8-6.8); NEUTROPHILS % (AUTO) 71 % (42-75); PLATELET COUNT 226 x10^3/uL (130-400); RED BLOOD COUNT 3.04 x10^6/uL (3.82-5.3); RED CELL DISTRIBUTION WIDTH 15.2 % (9.6-15.2)
[2017-04-29 04:55] LABS: CHLORIDE 101 mmol/L (98-107)
[2017-04-29 05:01] LABS: ANION GAP 9 mmol/L (5-15); CALCIUM 7.5 mg/dL (8.5-10.1); CREATININE 0.53 mg/dL (0.55-1.02)
[2017-04-29] MEDS: D5%-0.45NACL+KCL 30MEQ 1,000 ML IV SCH ×2 (05:13→14:30)
[2017-04-29] MEDS: PIPERACILLIN/TAZO/PMX 3.375GM 50 ML IV SCH ×2 (05:13→11:52)
[2017-04-29 07:18] VITALS: BP 130/80
[2017-04-29] MEDS: PANTOPRAZOLE 40 MG IV IVPush SCH (07:40)
[2017-04-29 13:11] VITALS: BP 131/81
== END 2017-04-29 16:41 | disposition home or self-care (01) | DRG 252 ==
LOC: ED 16:35 → EDIP 18:34 → SUATTDRO 18:46 → 3NW 21:27
PROVIDERS: ADMIT Hospitalist; ATTEND Hospitalist
PROC: 30233N1 Transfusion of Nonautologous Red Blood Cells into Peripheral Vein, Percutaneous Approach (ICD-10-PCS; principal; 2017-04-25)
PROC: 06H03DZ Insertion of Intraluminal Device into Inferior Vena Cava, Percutaneous Approach (ICD-10-PCS; 2017-04-26)
PROC: 0WJP4ZZ Inspection of Gastrointestinal Tract, Percutaneous Endoscopic Approach (ICD-10-PCS; 2017-04-29)
DX: I82.433 Acute embolism and thrombosis of popliteal vein, bilateral (principal); I26.99 Other pulmonary embolism without acute cor pulmonale; K55.9 Vascular disorder of intestine, unspecified; K56.600 Partial intestinal obstruction, unspecified as to cause; E44.0 Moderate protein-calorie malnutrition; C23 Malignant neoplasm of gallbladder; I82.412 Acute embolism and thrombosis of left femoral vein; C78.01 Secondary malignant neoplasm of right lung; C78.02 Secondary malignant neoplasm of left lung; K56.7 Ileus, unspecified; D68.59 Other primary thrombophilia; D62 Acute posthemorrhagic anemia; K92.2 Gastrointestinal hemorrhage, unspecified; I82.442 Acute embolism and thrombosis of left tibial vein; D25.9 Leiomyoma of uterus, unspecified; D73.5 Infarction of spleen; K83.8 Other specified diseases of biliary tract; E87.6 Hypokalemia; M48.00 Spinal stenosis, site unspecified; Z51.5 Encounter for palliative care; Z53.9 Procedure and treatment not carried out, unspecified reason; Z79.01 Long term (current) use of anticoagulants; Z85.05 Personal history of malignant neoplasm of liver; Z85.09 Personal history of malignant neoplasm of other digestive organs; Z93.3 Colostomy status; Z98.1 Arthrodesis status; Z86.718 Personal history of other venous thrombosis and embolism
CPT/HCPCS: 36415; 37191; 71010; 71275; 74000; 74177; 80048; 80053; 81001; 82040; 83605; 83735; 83880; 84100; 84484; 85014; 85018; 85025; 85610; 85730; 86850; 86900; 86923; 87040; 87086; 93005; 93306; 93970; 96365; 96366; 96367; J0696; J1100; J1170; J2250; J2405; J2543; J2704; J2710; J3010; J3480; J3490; Q9967; C1769; C1880; C9113; J0330; J0360; J2270; J7030; J7040; P9016; S0074